=== PATIENT | female | born 1950 | race Caucasian/White ===

== ENCOUNTER 2016-04-07 07:10 | Emergency (ER) | payer MEDICARE ==
[~2016-04-07] VITALS: Ht 170.2 cm; Wt 63.6 kg
[~2016-04-07 07:10] MED LIST: GABA600T2 PO; MELA1TAB16 PO; METH5SOL PO; NAPR250T PO; OXYC5CAP4 PO
[2016-04-07 07:13] VITALS: BP 119/75; PULSE 98; RESP 16; O2SAT 99
--- NOTE | 2016-04-07 07:23 | ED.REPORT ---
HPI-Back Pain 40 and Over Date of Service Apr 07, 2016 ED Provider: Dr. Tapia Patient is a 65 year old female with a history of chronic back pain and spinal stenosis who presents to the ER with back pain that is radiating down her left leg that has been increasing in severity over the past 7 days. Pt rates severity of pain at 9/10. Pt c/o associates numbness, tingling, and week long unprecedented fecal and urinary incontinence. Pt's last incontinent episode was one hour ago. Patient has spinal stenosis in back and will have surgery in one month at . Pt took 5 mg of Methadone but symptoms have not been relieved. Pt denies fevers, chills, abdominal pain, and dysuria. Nursing Notes Stated Complaint: BACK/LEG PAIN Chief Complaint: Extremity Trauma Nursing Notes Reviewed: Yes Allergies: Coded Allergies: codeine (Verified Allergy, Severe, RASH, 08/07/15) Neuromuscular Blockers, Steroidal (Verified Allergy, Intermediate, HYPERACTIVITY, 08/07/15) Sulfa (Sulfonamide Antibiotics) (Verified Adverse Reaction, Severe, NAUSEA , 08/07/15) Scheduled Gabapentin (Gabapentin) 600 Mg Tablet 600 MG PO TID Methadone (Methadone) 5 Mg/5 Ml Solution 5 MG PO q12hrs General Time Seen by MD: 07:22 Chief Complaint Back pain Hx Obtained From: Patient Arrived By: Walk-in Sudden in Onset?: Yes Onset Occurred: 6 days ago Symptom Duration: Since onset Location: : Spinal lumbar area Radiation: : Left leg above knee Severity: Current: Pain level 9 out of 10 Severity: Maximum: Moderate Past Medical History Past Medical History chronic back pain history of narcotic abuse, on methadone Hepatitis C positive Kidney Stones PID Heart Murmur UTIs Past Surgical History Lumbar stenosis, spondylolisthesis and radiculopathy, status post L3-L4 anterior and posterior instrumented fusion with cage screws and iliac crest bone grafting, L2-L3 laminectomy and revision, right-sided L3-L4 laminectomy Reports: Hysterectomy Reports: Back/neck surgery, Carpal tunnel Smoking History Current Every Day Smoker Social History Alcohol Use: 1-3 per week Drug Use: In recovery Other Social History: Local resident Ambulatory Status Independent Review of Systems Constitutional: Denies: Chills, Fever GI: Denies: Abdominal pain Female: Denies: Dysuria Musculoskeletal: Reports: Back pain, Extremity pain (left leg) Neurologic: Reports: Bladder dysfunction, Bowel dysfunction, Numbness, Weakness Complete sys rev & neg: except as marked. Physical Exam Initial Vital Signs Vital Signs (First) Date Time Temp Pulse Resp B/P Pulse Ox O2 Delivery O2 Flow Rate FiO2 04/07/16 07:13 36.1 98 16 119/75 99 Room Air Initial VS: Reviewed Head / Eyes: Atraumatic, Normocephalic, PERRL ENT: Mucous membranes moist, Conjunctiva normal, No scleral icterus Skin: Warm, Dry, No cyanosis Psychiatric: Mood/affect normal, Behavior normal, Normal thought content General/Constitutional: Awake, Alert Respiratory / Chest: Atraumatic, Breath sounds NL, Breath sounds = bilat, No respiratory distress, No rales, No rhonchi Cardiovascular: Heart rate NL, Regular rhythm, Heart sounds NL Abdomen: Atraumatic, Soft, Non-tender, No guarding, No rebound Flank / Spine / Paraspinal: Positive: Lumbar spine tender... L2 to L4 tender to palpation Neurologic: Oriented X3, Speech NL Lower Extremity / Pelvis / MS: No deformity, No ligamentous injury paresthesia, numbness, diminished sensation down lateral left calf and foot 4/5 muscle strength w/ left hip flexor, knee flexor, and plantar flexion 5/5 muscles strength on right leg Rectal Exam: Absent rectal tone with active stool leakage Diminished perineal sensation pressure sense only Interpretation & Diagnostics Interpretation & Diagnostics: MRI Lumbar Spine IMPRESSION: 1. Increased discogenic Modic type I changes at L2-L3 and L3-L4. 2. No change in multilevel canal and foraminal stenoses secondary to disc and facet disease, as well as ligament flavum operatively. 3. No change in severe L2-L3 canal stenosis. 4. No change in multilevel foraminal stenoses as described above. Dictated by: Pablo Mancilla M.D. on 04/07/2016 at 10:05 Approved by: Pablo Mancilla M.D. on 04/07/2016 at 10:05 Lab Results Interpretation Result Diagram: 04/07/16 0825 04/07/16 0825 Test 04/07/16 08:25 04/07/16 14:00 White Blood Count 5.3th/mm3 (3.8-10.1) Red Blood Count 3.92mil/mm3 (3.90-5.20) Hemoglobin 12.3g/dL (12.0-15.6) Hematocrit 35.7% (35.0-46.0) Mean Corpuscular Volume 91.1fL (81-100) Mean Corpuscular Hemoglobin 31.4pg (27.0-35.0) Mean Corpuscular Hemoglobin Concent 34.5% (32.0-37.0) Red Cell Distribution Width 11.7% (12.3-15.4) Platelet Count 229bil/L (150-400) Neutrophils (%) (Auto) 49.9% (40-74) Lymphocytes (%) (Auto) 36.4% (14-46) Monocytes (%) (Auto) 8.3% (4-12) Eosinophils (%) (Auto) 4.6% (0-5) Basophils (%) (Auto) 0.6% (0-3) Erythrocyte Sedimentation Rate 20mm/hr (0-40) Sodium Level 131mEq/L (134-144) Potassium Level 3.8mEq/L (3.5-5.2) Chloride Level 94mEq/L (97-108) Carbon Dioxide Level 23mmol/L (18-29) Blood Urea Nitrogen 11mg/dL (8-27) Creatinine 0.63mg/dL (0.57-1.00) Estimat Glomerular Filtration Rate 136mL/min (>59) Glucose Level 101mg/dL (60-99) Calcium Level 9.2mg/dL (8.5-10.1) Total Bilirubin 0.3mg/dL (0.0-1.2) Aspartate Amino Transf (AST/SGOT) 19U/L (0-50) Alanine Aminotransferase (ALT/SGPT) 10U/L (0-32) Alkaline Phosphatase 94U/L (25-165) C-Reactive Protein 0.1mg/dL (0.0-0.5) Total Protein 7.6g/dL (6.4-8.4) Albumin 4.2g/dL (3.4-5.0) Hold Urine Received (Received) General Lab Results Interp 1: Labs reviewed Re-Eval/Medical Decision Med Decision/Clinical Course Highly suspicious for cauda equina syndrome. Immediately after physical exam radiology was consulted and improves an MRI. After results of MRI are evaluated [facility] is contacted and subsequently plan for transfers initiated. Re-Evaluation/Progress #1: Time of Eval: 08:03 Re-Evaluation/Progress Note: Pt rechecked and informed of need for MRI. Re-Evaluation/Progress #2: Time of Eval: 10:17 Re-Evaluation/Progress Note: Tx center will call back Re-Evaluation/Progress #3: Time of Eval: 10:34 Re-Evaluation/Progress Note: Pt rechecked. Informed of MRI results and plan for treatment. Pt understands and agrees with plan. 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 Counseled Regarding: Diagnosis, Lab results, Need for transfer Discharge & Departure Impression: Primary Impression: Bowel and bladder incontinence Disposition: Transfer, Acute Care Facility Receiving Hospital: [facility]- Dr. Gunter Transfer Accepted: Yes Transfer Accepted at: 14:40 Transfer Reason: Higher level of care Spoke with: Attending physician Patient Status: Stable Patient Informed: Yes Discharge Condition All VS Reviewed: Yes Condition: Stable Referrals: Julia Oden MD (PCP) Crit Care Except Billable Proc Time Spent: 30-74 minutes Services Performed: Patient management by me, Time spent at bedside, Reviewing test results Critical Care Notes: See MDM Scribe Attestation Portion of this note were transcribed by Emily Keller and Garth Meraz. I, Dr. Tapia personally performed the history, physcial exam, and medical decision- making: I reviewed and confirmed the accuracy for the information in the transcribed note. Signed by: hina Momin, 04/07/16 1510 copies to: Julia Oden MD, Timothy S DO Apr 07, 2016 07:23 GARTH MERAZ Apr 07, 2016 08:11 Emily Keller Apr 07, 2016 09:23
[2016-04-07 08:59] LABS: BASOPHILS % (AUTO) 0.6 % (0-3); EOSINOPHILS % (AUTO) 4.6 % (0-5); MONOCYTES % (AUTO) 8.3 % (4-12); Mean Corpuscular Hemoglobin 31.4 pg (27.0-35.0); Mean Corpuscular Volume 91.1 fL (81-100); NEUTROPHILS % (AUTO) 49.9 % (40-74); Platelet Count 229 bil/L (150-400)
[2016-04-07 09:44] LABS: ERYTHROCYTE SEDIMENTATION RATE 20 mm/hr (0-40)
[2016-04-07 10:01] VITALS: BP 106/76; PULSE 77; RESP 12; O2SAT 97
--- NOTE | 2016-04-07 10:07 | DRSVH ---
PROCEDURE: MRI LUMBAR SPINE WITHOUT CONTRAST ([id number]) INDICATIONS: back pain, saddle anesthesia TECHNIQUE: Noncontrast sagittal T1 spin echo and T2 fast echo, coronal T2, sagittal STIR, axial T1 and T2 fast s pin echo through the lumbar spine. COMPARISON: [facility], MR, MR LUMBAR SPINE W&WO CON, 08/11/2015, 21:23. [facility], CR, SPINE LUMB 2 OR 3VW, 12/23/2013, 8:50. FINDINGS: Image quality: Limited by metallic artifact. Alignment and Curvature: 5 lumbar type vertebral bodies are present by plain film. There is a mild d iffuse rightward curvature of the lumbar spine. There is mild grade 1 anterolisthesis of L5 on S1. Bone Marrow: Marrow is of normal overall signal. No acute vertebral body compression fractures. Th ere is increased, moderate reactive signal within the endplates adjacent to the the L2-L3 interverteb ral disc. Increased, moderate reactive signal within the endplates adjacent to the L3-L4 intervertebr al disc. No change in moderate reactive signal within the endplates adjacent to the the L4-L5 and L5- S1 intervertebral discs. Status post L3-S1 fusion with right-sided juan antonio and transpedicular screws. Spinal Cord: Conus medullaris terminates at the L1-L2 disc space level. Visualized cord demonstrate s normal signal and size. Paraspinous Soft Tissues: No paravertebral masses. T12-L1: Disc desiccation and diffuse disc bulge. Bilateral facet and ligamentum flavum hypertrophy. M ild canal stenosis. Mild bilateral foraminal stenosis. L1-L2: Disc desiccation and diffuse disc bulge, with small superimposed left paracentral protrusion. Bilateral facet and ligamentum flavum hypertrophy. Mild to moderate canal stenosis. Mild to moderate bilateral foraminal stenosis. No change. L2-L3: Disc height loss and desiccation, as well as diffuse disc bulge. Superimposed broad-based left precentral protrusion. Bilateral facet and ligamentum flavum hypertrophy. Severe canal stenosis. Mod erate bilateral foraminal stenosis. No change. L3-L4: Disc desiccation and diffuse disc bulge. Bilateral facet hypertrophy. Status post fusion. Mild canal stenosis. Increased, mild to moderate bilateral foraminal stenosis. L4-L5: Disc height loss and desiccation, as well as diffuse disc/osteophyte, with superimposed broad- based right far lateral protrusion. Bilateral facet hypertrophy. Status post fusion. Mild canal steno sis. Moderate bilateral foraminal stenosis. No change. L5-S1: Disc desiccation and diffuse disc bulge with bilateral facet hypertrophy. Mild canal stenosis. Moderate left foraminal stenosis. Right neural foramina not well seen. IMPRESSION: 1. Increased discogenic Modic type I changes at L2-L3 and L3-L4. 2. No change in multilevel canal and foraminal stenoses secondary to disc and facet disease, as well as ligament flavum operatively. 3. No change in severe L2-L3 canal stenosis. 4. No change in multilevel foraminal stenoses as described above. Dictated by: Pablo Mancilla M.D. on 04/07/2016 at 10:05 Approved by: Pablo Mancilla M.D. on 04/07/2016 at 10:05
[2016-04-07 12:59] VITALS: BP 91/43; PULSE 84; RESP 15; O2SAT 97
[2016-04-07 17:50] VITALS: BP 97/57; PULSE 57; RESP 12; O2SAT 97
== END 2016-04-07 19:06 | disposition short-term general hospital (02) ==
LOC: SED 07:10
DX: R15.9 Full incontinence of feces (principal); R32 Unspecified urinary incontinence; Z86.19 Personal history of other infectious and parasitic diseases; Z87.39 Personal history of other diseases of the musculoskeletal system and connective tissue; Z90.710 Acquired absence of both cervix and uterus; F17.200 Nicotine dependence, unspecified, uncomplicated; Z88.2 Allergy status to sulfonamides; Z88.5 Allergy status to narcotic agent; Z88.8 Allergy status to other drugs, medicaments and biological substances
CPT/HCPCS: 36415; 72148; 80053; 85025; 85651; 86140; 96374; 96376; 99291; J2270

== ENCOUNTER 2016-08-23 10:18 | Emergency (ER) | payer MEDICARE ==
[~2016-08-23] VITALS: Ht 170.2 cm; Wt 68.2 kg
[~2016-08-23 10:18] MED LIST changes: -MELA1TAB16 PO; -NAPR250T PO; -OXYC5CAP4 PO
[2016-08-23 10:32] VITALS: BP 136/75; PULSE 76; RESP 16; O2SAT 95
--- NOTE | 2016-08-23 11:13 | ED.REPORT ---
HPI-Back Pain 40 and Over Date of Service August 23, 2016 ED Provider: Erasmo Landis MD The patient is a 66 year old female with history of kidney stones, chronic back pain, lumbar stenosis, spondylolisthesis, radiculopathy, s/p L3-L4 fusion, L2- L3 laminectomy, and right sided L3-L4 laminectomy, who presents to the emergency department complaining of right flank pain that began suddenly last night when she was trying to go to bed. Her pain does not radiate into her abdomen. She also noticed nausea. She denies recent injuries or trauma. The patient feels that her current pain is different from her chronic pain. She normally takes methadone and oxycodone for pain. She took these medications this morning with no relief. She denies vomiting, diarrhea, dysuria, fever, chills or diaphoresis. Nursing Notes Stated Complaint: LOWER BACK PAIN Chief Complaint: Back Pain or Injury Nursing Notes Reviewed: Yes Allergies: Coded Allergies: codeine (Verified Allergy, Severe, RASH, 08/07/15) Neuromuscular Blockers, Steroidal (Verified Allergy, Intermediate, HYPERACTIVITY, 08/07/15) Sulfa (Sulfonamide Antibiotics) (Verified Adverse Reaction, Severe, NAUSEA , 08/07/15) Scheduled Gabapentin (Gabapentin) 600 Mg Tablet 600 MG PO TID Methadone (Methadone) 5 Mg/5 Ml Solution 5 MG PO q12hrs General Time Seen by MD: 10:46 Chief Complaint Flank pain right Hx Obtained From: Patient Arrived By: Walk-in Sudden in Onset?: No Onset Occurred: Yesterday Symptom Duration: Since onset Caused by: Spontaneous/no mechanism Location: : Flank right Quality: Painful Radiation: : Does not radiate Severity: Current: Moderate Severity: Maximum: Severe Recent Healthcare: No recent doctor visit, No recent hospitalization Similar Sx Previous: No Past Medical History Past Medical History Chronic back pain Lumbar stenosis, spondylolisthesis and radiculopathy History of narcotic abuse, on methadone Hepatitis C positive Kidney Stones PID Heart Murmur Frequent UTIs Past Surgical History Lumbar stenosis, spondylolisthesis and radiculopathy, status post L3-L4 anterior and posterior instrumented fusion with cage screws and iliac crest bone grafting, L2-L3 laminectomy and revision, right-sided L3-L4 laminectomy Reports: Hysterectomy Reports: Back/neck surgery, Carpal tunnel Family History Noncontributory Smoking History Current Every Day Smoker Social History Alcohol Use: 1-3 per week Drug Use: In recovery Other Social History: Local resident Ambulatory Status Independent Review of Systems Constitutional: Denies: Chills, Fever GI: Reports: Nausea, Denies: Abdominal pain, Diarrhea, Vomiting Female: Reports: Flank pain, Denies: Dysuria Musculoskeletal: Reports: Back pain Complete sys rev & neg: except as marked. Skin: Denies Diaphoresis Physical Exam Initial Vital Signs Vital Signs (First) Date Time Temp Pulse Resp B/P Pulse Ox O2 Delivery O2 Flow Rate FiO2 08/23/16 10:32 36.2 76 16 136/75 95 Initial VS: Reviewed Head / Eyes: Atraumatic, Normocephalic, PERRL ENT: Mucous membranes moist, Conjunctiva normal, No scleral icterus Neck: Supple, Non-tender, Full range of motion Lymphatic: No lymphadenopathy Extremities: Vascular intact, Neuro intact, No swelling, No tenderness Skin: Warm, Dry, No cyanosis Psychiatric: Mood/affect normal, Behavior normal, Normal thought content General/Constitutional: Awake, Alert Respiratory / Chest: Atraumatic, Breath sounds NL, Breath sounds = bilat, No respiratory distress, No rales, No rhonchi, No wheezing Cardiovascular: Heart rate NL, Regular rhythm, Heart sounds NL, No gallop, No murmurs, No rubs, Peripheral circulation NL Abdomen: Atraumatic, Soft, Non-tender, McBurney's non-tender, No guarding, No rebound, BS normoactive, No distention, No hernia, No palpable mass, No pulsatile mass Back: Atraumatic, Inspection NL, Full range of motion, Non-tender, No CVA tenderness Neurologic: Oriented X3, Speech NL, No motor deficits, No sensory deficits Interpretation & Diagnostics CT KUB IMPRESSION: 1. Nonobstructing right renal calculi. 2. Minimal diverticulosis. Dictated by: Rosalie Powers M.D. on 08/23/2016 at 11:41 Lab Results Interpretation Result Diagram: 08/23/16 1115 08/23/16 1115 Test 08/23/16 11:15 08/23/16 11:39 White Blood Count 4.2th/mm3 (3.8-10.1) Red Blood Count 4.00mil/mm3 (3.90-5.20) Hemoglobin 12.3g/dL (12.0-15.6) Hematocrit 36.1% (35.0-46.0) Mean Corpuscular Volume 90.3fL (81-100) Mean Corpuscular Hemoglobin 30.8pg (27.0-35.0) Mean Corpuscular Hemoglobin Concent 34.1% (32.0-37.0) Red Cell Distribution Width 12.9% (12.3-15.4) Platelet Count 158bil/L (150-400) Neutrophils (%) (Auto) 43.6% (40-74) Lymphocytes (%) (Auto) 42.2% (14-46) Monocytes (%) (Auto) 7.2% (4-12) Eosinophils (%) (Auto) 6.0% (0-5) Basophils (%) (Auto) 1.0% (0-3) Sodium Level 135mEq/L (134-144) Potassium Level 4.4mEq/L (3.5-5.2) Chloride Level 97mEq/L (97-108) Carbon Dioxide Level 23mmol/L (18-29) Blood Urea Nitrogen 13mg/dL (8-27) Creatinine 0.84mg/dL (0.57-1.00) Estimat Glomerular Filtration Rate 97mL/min (>59) Glucose Level 99mg/dL (60-99) Calcium Level 9.7mg/dL (8.5-10.1) Magnesium Level 1.6mg/dL (1.6-2.6) Total Bilirubin 0.3mg/dL (0.0-1.2) Aspartate Amino Transf (AST/SGOT) 21U/L (0-50) Alanine Aminotransferase (ALT/SGPT) 14U/L (0-32) Alkaline Phosphatase 101U/L (25-165) Total Protein 8.0g/dL (6.4-8.4) Albumin 4.4g/dL (3.4-5.0) Lipase 16U/L (13-60) Urine Color Straw (YELLOW) Urine Appearance Hazy (CLEAR,HAZY) Urine pH 5.0 (5.0-8.0) Urine Specific [place] 1.010 (1.003-1.035) Urine Protein Negativemg/dL (NEG,TRACE) Urine Glucose (UA) Negativemg/dL (NEGATIVE) Urine Ketones Negativemg/dL (NEGATIVE) Urine Occult Blood Moderate (NEGATIVE) Urine Nitrite Negative (NEGATIVE) Urine Bilirubin Negative (NEGATIVE) Urine Urobilinogen Normalmg/dL (NORMAL) Urine Leukocyte Esterase Small (NEGATIVE) Urine RBC >50/hpf (0-2) Urine WBC 6-10/hpf (0-5) Urine Epithelial Cells Moderate/hpf (NONE-MOD) Urine Crystals None seen (NONE SEEN) Urine Bacteria Moderate/hpf (NONE-FEW) Urine Hyaline Casts None/lpf (NONE) Urine Granular Casts None seen (NONE SEEN) Urine Waxy Casts None seen (NONE SEEN) Urine Red Blood Cell Casts None seen (NONE SEEN) Urine White Blood Cell Casts None seen (NONE SEEN) Urine Mucus None seen (None Seen) Urine Trichomonas None seen (NONE SEEN) Urine Yeast Few (NONE SEEN) Urinalysis Comment None Urine Culture Reflexed Indicated Re-Eval/Medical Decision Source of Hx: Old records Re-Evaluation/Progress #1: Time of Eval: 11:45 Re-Evaluation/Progress Note: Her pain is slightly improved with pain medication. Re-Evaluation/Progress #2: Time of Eval: 13:08 Re-Evaluation/Progress Note: Rechecked the patient. Discussed results, diagnosis, and plan for discharge. All questions were addressed. Counseled Regarding: Diagnosis, Lab results, Need for follow-up, When/why to return to ED Discharge & Departure Impression: Primary Impression: Right flank pain Additional Impressions: Renal calculi Gross hematuria Disposition: Home Discharge Condition All VS Reviewed: Yes Condition: Stable Patient Instructions: Renal Colic (ED) Additional Instructions: Thank you for entrusting us with your care today. I am glad you are feeling better. Your CT scan today does not show evidence of a stone in your ureter or bladder. It is possible that you may have already passed a stone. There is no evidence of an infection. Return to the emergency department for any new or concerning symptoms. Referrals: Julia Oden MD (PCP) Scribe Attestation Portions of this note were transcribed by Cely Christopher. I, Dr. Landis personally performed the history, physical exam and medical decision-making; I reviewed and confirmed the accuracy of the information in the transcribed note. Signed by: Grace Levin, 08/23/2016 at 1320. copies to: Julia Oden MD, Kirk H MD August 23, 2016 11:13 Ashwin,Cely Pichardo August 23, 2016 11:37
[2016-08-23 11:41] LABS: MONOCYTES % (AUTO) 7.2 % (4-12); Mean Corpuscular Hemoglobin 30.8 pg (27.0-35.0); Mean Corpuscular Volume 90.3 fL (81-100); NEUTROPHILS % (AUTO) 43.6 % (40-74); Platelet Count 158 bil/L (150-400)
[2016-08-23 11:59] LABS: APPEARANCE,URINE HAZY (CLEAR,HAZY); COLOR,URINE STRAW (YELLOW)
[2016-08-23 12:00] LABS: OCCULT BLOOD,URINE MODERATE (NEGATIVE); UROBILINOGEN,URINE NORMAL (NORMAL); YEAST,URINE FEW (NONE SEEN)
[2016-08-23 12:10] LABS: Magnesium 1.6 mg/dL (1.6-2.6)
--- NOTE | 2016-08-23 12:46 | DRSVH ---
PROCEDURE: CT KUB ([id number]) INDICATIONS: right flank pain TECHNIQUE: Noncontrast 5 mm thick sections acquired from the diaphragms to the symphysis. 5 mm thick coronal an d sagittal reformats were then performed. For radiation dose reduction, the following was used: aut omated exposure control, adjustment of mA and/or kV according to patient size. COMPARISON: [facility], CT, KUB - CT ([facility]), 07/30/2012, 13:46. FINDINGS: Image quality: Excellent. Lung bases: Linear areas of parenchymal thickening are noted within the bases, with the left side arin earing unchanged compared to 07/30/12. Right-sided parenchymal thickening is new compared to prior exam . Urinary system: Both kidneys are normal in size. There is a punctate calcification in both the mid a nd lower pole the right kidney, nonobstructing. Ureters are unremarkable. The bladder is distended wi thout visualized calculus. Other solid organs: Liver and spleen are normal in size. Gallbladder is unremarkable. Pancreas is normal in contours. No adrenal nodules. Peritoneum and bowel: Unenhanced bowel loops are nonobstructed. The appendix is at the upper limits of normal in size. There is no gross surrounding inflammatory change. It is similar in appearance com pared to prior exam. Minimal scattered colonic diverticula are present. Nodes and vessels: No retroperitoneal or mesenteric adenopathy by size criteria. Aorta and inferior vena cava are normal in caliber. Abdominal wall: No ventral hernias. Pelvis: No free pelvic fluid. No inguinal hernias or adenopathy. Bones: No suspicious bony lesions. No vertebral body compression fractures. Posterior lumbosacral fixation is present. IMPRESSION: 1. Nonobstructing right renal calculi. 2. Minimal diverticulosis. Dictated by: Rosalie Powers M.D. on 08/23/2016 at 11:41 Approved by: Rosalie Powers M.D. on 08/23/2016 at 11:45
== END 2016-08-23 13:24 | disposition home or self-care (01) ==
LOC: SED 10:18
DX: R10.31 Right lower quadrant pain (principal); N20.0 Calculus of kidney; B96.20 Unspecified Escherichia coli [E. coli] as the cause of diseases classified elsewhere; R31.0 Gross hematuria; F17.200 Nicotine dependence, unspecified, uncomplicated; Z87.440 Personal history of urinary (tract) infections; Z87.442 Personal history of urinary calculi; Z88.2 Allergy status to sulfonamides; Z88.5 Allergy status to narcotic agent; Z88.8 Allergy status to other drugs, medicaments and biological substances